=== PATIENT | male | born 1990 | race Caucasian/White ===

== ENCOUNTER 2019-04-22 11:28 | Inpatient (IN) | payer OTHER ==
[~2019-04-22] VITALS: Ht 175.3 cm; Wt 62.6 kg
[2019-04-22 11:35] VITALS: BP 124/78
[2019-04-22 12:03] LABS: CALCIUM 8.8 mg/dL (8.5-10.1); CREATININE 1.2 mg/dL (0.6-1.3); POTASSIUM 3.7 mmol/L (3.5-5.1)
[2019-04-22 12:06] LABS: ABSOLUTE EOSINOPHILS 0.2 thou/uL (0.0-0.7); ABSOLUTE LYMPHOCYTES 0.7 thou/uL (0.8-5.3); ABSOLUTE NEUTROPHILS 5.8 thou/uL (1.6-8.1); BASOPHILS 0.6 %; EOSINOPHILS 2.3 %; HEMATOCRIT 46.3 % (42.0-52.0); HEMOGLOBIN 16.3 gm/dL (14.0-18.0); LYMPHOCYTES 8.9 %; MCH 32.6 pg (26.0-34.0); MCHC 35.2 g/dL (28.0-37.0); MCV 92.8 fL (80.0-100.0); MONOCYTES 13.3 %; MPV 8.4 fl. (7.2-11.1); NUCLEATED RBCS 0 /100WBC; PLATELET COUNT* 186 thou/uL (150-400); POLYS 74.9 %; RBC 4.99 mil/uL (4.50-6.00); WBC 7.7 thou/uL (4.0-11.0)
[2019-04-22 12:14] LABS: ALBUMIN 4.1 g/dL (3.4-5.0); TOTAL BILIRUBIN 1.1 mg/dL (<0.1-1.0); TOTAL PROTEIN 7.3 g/dL (6.4-8.2)
[2019-04-22 12:17] LABS: URINE BILIRUBIN 2+ (Negative); URINE BLOOD NEGATIVE (Negative); URINE CLARITY CLEAR; URINE COLOR YELLOW; URINE GLUCOSE-RANDOM NEGATIVE (Negative); URINE KETONES 3+ (Negative); URINE LEUKOCYTES-REFLEX NEGATIVE (Negative); URINE NITRITE-REFLEX NEGATIVE (Negative); URINE PROTEIN TRACE (Negative); URINE UROBILINOGEN 0.2 E.U./dl (0.2-1.0)
[2019-04-22 12:18] LABS: ICTOTEST (BILI CONFIRMATORY) Negative (Negative)
[2019-04-22 14:36] VITALS: BP 124/78
[2019-04-22 14:40] VITALS: BP 118/62
[2019-04-22 19:40] VITALS: BP 104/72
[2019-04-23] MEDS ORDERED: ADDERALL 10 MG10 MG PO (04:56)
[2019-04-23 07:50] VITALS: BP 105/57
[2019-04-23] MEDS ORDERED: CIPRO500 M1 PO ×2 (10:35→12:33)
[2019-04-23] MEDS ORDERED: FLAGYL500 M1 PO ×2 (10:35→12:33)
[2019-04-23 10:36] VITALS: BP 105/57
--- NOTE | 2019-04-28 20:16 | CON ---
[address] [address] CONSULTATION Name: SAVAGEBENITEZ M Room: [address] IN M.R.#: [id number] Admission: 04/22/19 Attend Phys: Skyla German Discharge: 04/23/19 Date of : 89 Report #: [id number] THIS REPORT FOR: //name// CC: [facility]EE physician/PCP Duke Penaloza DATE OF SERVICE: 04/23/2019 HISTORY OF PRESENT ILLNESS: This is a pleasant 29-year-old gentleman, with no significant past medical history, who is presenting for evaluation of abdominal pain and diarrhea. The patient reports his symptoms began 2 days back when he began having 3-4 bowel movements per day. About 2 days back, he began having bloody bowel movements with moderate amount of blood in stool, enough to turn the toilet bowl red in color. The patient reports that he has had about 4-5 such bowel movements, and since then, the amount of blood in stool has progressively tapered. The patient continues to have loose stools and his last stool was at 6:00 a.m. on 04/23/2019. The patient reports improvement in his abdominal pain and cramps and significant improvement in his nausea. He denies any vomiting. The patient denies similar episodes in the past. The patient denies recent exposure to antibiotics, but he does report recent travel, where he may have been exposed to unsafe water. The patient reports his brother and father both had similar symptoms, although not to this extent. PAST MEDICAL HISTORY: None significant. PAST SURGICAL HISTORY: None significant. SOCIAL HISTORY: The patient denies smoking, alcohol or recreational drug use. FAMILY HISTORY: There is no family history of inflammatory bowel disease or colorectal cancer. REVIEW OF SYSTEMS: A comprehensive 10-point review of systems is negative except for what was mentioned in the HPI. PHYSICAL EXAMINATION: VITAL SIGNS: Temperature 37.0, pulse rate 77, respirations 16 and blood pressure 105/57. GENERAL: The patient is alert, awake and oriented x 3. HEENT: Pupils are equal, round and reactive to light and accommodation. Mucous membranes are moist. There is no congestion. LUNGS: Clear to auscultation bilaterally. CARDIOVASCULAR: Rate and rhythm regular. S1, S2 present. ABDOMEN: Soft. There is no significant distention, guarding or rigidity. EXTREMITIES: [place] [address] CONSULTATION Name: BRIDGET SAVAGELON Lloyd Room: [address]#: [id number] Admission: 04/22/19 Attend Phys: Skyla German Discharge: 04/23/19 Date of : 89 Report #: [id number] LABORATORY DATA: Hemoglobin 16.3, hematocrit 46.3, WBC count 7.7 and platelet count 186. Sodium 140, potassium 3.7, chloride 103, bicarbonate 25, BUN 15, creatinine 1.2, total bilirubin 1.1, AST 21, ALT 27 and alkaline phosphatase 83. C. difficile toxin negative and stool culture for Campylobacter and Shigella were all negative. IMAGING: CT of abdomen and pelvis demonstrates diffuse colonic wall thickening with associated pericolonic mesenteric inflammatory changes consistent with acute inflammatory or infectious colitis, inflammatory bowel disease such as ulcerative colitis or Crohn's disease would also be a consideration. ASSESSMENT AND PLAN: A pleasant 29-year-old gentleman with history of abdominal pain and diarrhea, found to have colitis on CT. Microbiology negative for C. difficile and Shigella. The patient is able to tolerate a diet. We can discharge him today. I will set up a followup colonoscopy in 2-3 weeks' time. Further recommendations will be based on these tests. <ELECTRONICALLY SIGNED> By: Chidi Henry MD 04/28/192015 1040 1934Chidi Henry MD /nt
== END 2019-04-23 13:19 | disposition home or self-care (01) | DRG 372 ==
LOC: M.ERS 11:28 → M.ORTHSURG 14:13 → M.TBA-ER 14:13 → M.ORTHSURG 14:53
PROVIDERS: Nurse Practitioner Family; ADMIT Internal Medicine
DX: A04.9 Bacterial intestinal infection, unspecified (principal); K62.5 Hemorrhage of anus and rectum; Z98.890 Other specified postprocedural states